=== PATIENT | male | born 1950 | race Caucasian/White ===

== ENCOUNTER 2020-12-26 02:24 | Emergency (ER) | payer MEDICARE, MEDICAID ==
[~2020-12-26] VITALS: Ht 182.9 cm; Wt 50.2 kg
[2020-12-26] MEDS ORDERED: QUET100T PO (03:06)
[2020-12-26] MEDS ORDERED: CLOP75TA60 PO (03:06)
[2020-12-26] MEDS ORDERED: ATOR40TA28 PO (03:06)
[2020-12-26] MEDS ORDERED: MIRT-89 PO (03:06)
[2020-12-26] MEDS ORDERED: DIVA125T32 PO (03:06)
[2020-12-26] MEDS ORDERED: ACET-2247 PO (03:06)
[2020-12-26] MEDS ORDERED: GLYC1TAB27 PO (03:06)
[2020-12-26] MEDS ORDERED: TAMS-13 PO (03:06)
[2020-12-26] MEDS: ZIPRASIDONE MESYLATE 20 MG/VIAL IM ONE (04:09)
[2020-12-26 04:12] LABS: APPEARANCE,URINE CLEAR (CLEAR); BILIRUBIN,URINE NEGATIVE (NEGATIVE); GLUCOSE, URINE (UA) NEGATIVE (NEGATIVE); KETONES,URINE NEGATIVE (NEGATIVE); LEUKOCYTE ESTERASE ,URINE NEGATIVE (NEGATIVE); NITRATE,URINE NEGATIVE (NEGATIVE); OCCULT BLOOD,URINE NEGATIVE (NEGATIVE); PROTEIN,URINE NEGATIVE (NEGATIVE); UROBILINOGEN,URINE 0.2 mg/dL (<=1.0)
[2020-12-26 04:20] LABS: ANION GAP 4 mmol/L (8-16); CARBON DIOXIDE 29 mmol/L (22-29); CHLORIDE 104 mmol/L (98-107); CREATININE 0.62 mg/dL (0.60-1.30); GLOMERULAR FILTR. RATE CALC > 60 mL/min (>60); GLUCOSE,RANDOM 88 mg/dL (70-110); POTASSIUM 3.7 mmol/L (3.5-5.1); SODIUM SERUM 137 mmol/L (136-145); UREA NITROGEN, BLOOD 16 mg/dL (7-18)
[2020-12-26 04:30] LABS: B-TYPE NATRIURETIC PEPTIDE 16 pg/mL (0-100)
[2020-12-26 04:33] LABS: BASOPHILS % (AUTO) 0.3 % (0.0-2.0); EOSINOPHILS % (AUTO) 0.8 % (1.0-6.0); HEMATOCRIT 37.6 % (41-53); HEMOGLOBIN 12.7 g/dL (13.5-17.5); LYMPHOCYTES # (AUTO) 0.9 K/uL (1.0-4.8); LYMPHOCYTES % (AUTO) 11.9 % (22.0-44.0); MEAN CORPUSCULAR HEMOGLOBIN 31.1 pg (26.0-34.0); MEAN CORPUSCULAR HGB CONC 33.7 G/dL (31.0-37.0); MEAN CORPUSCULAR VOLUME 92 fL (80-100); MONOCYTES # (AUTO) 0.7 K/uL (0.1-1.0); MONOCYTES % (AUTO) 9.4 % (2.0-9.0); NEUTROPHILS # (AUTO) 5.9 K/uL (1.8-7.7); NEUTROPHILS % (AUTO) 77.6 % (40.0-70.0); PLATELET COUNT (AUTO) 392 K/uL (150-450); RED BLOOD CELL COUNT(AUTO) 4.08 MIL/uL (4.50-5.90); RED CELL DISTRIBUTION WIDTH 15.3 % (11.5-14.5)
[2020-12-26 04:36] LABS: ALANINE AMINOTRANSFERASE 25 U/L (12-78); ALBUMIN 3.5 g/dL (3.4-5.0); ALKALINE PHOSPHATASE 109 U/L (46-116); ASPARTATE AMINOTRANSFERASE 25 U/L (15-37); BILIRUBIN,TOTAL 0.4 mg/dL (0.1-1.0); CALCIUM, TOTAL 9.2 mg/dL (8.8-10.5); CREATINE KINASE, TOTAL ONLY 171 U/L (39-308)
[2020-12-26 05:03] LABS: VALPROIC ACID 22 mcg/mL (50-100)
[2020-12-26] MEDS: HALOPERIDOL LACTATE 5 MG/ML VIAL IM ONE (05:04)
[2020-12-26] MEDS: DiphenhydrAMINE HCL 50 MG/ML VIAL IM ONE (05:08)
[2020-12-26 06:00] VITALS: BP 143/90
== END 2020-12-26 10:43 | disposition home or self-care (01) ==
LOC: EMS 02:27
DX: S51.812A Laceration without foreign body of left forearm, initial encounter (principal); F03.90 Unspecified dementia, unspecified severity, without behavioral disturbance, psychotic disturbance, mood disturbance, and anxiety; F41.9 Anxiety disorder, unspecified; I11.9 Hypertensive heart disease without heart failure; G43.909 Migraine, unspecified, not intractable, without status migrainosus; F20.9 Schizophrenia, unspecified; X58.XXXA Exposure to other specified factors, initial encounter; Y93.89 Activity, other specified; Y92.89 Other specified places as the place of occurrence of the external cause; Y99.8 Other external cause status
CPT/HCPCS: 36415; 70450; 71045; 80053; 80164; 81003; 82550; 83880; 84484; 85025; 85610; 85730; 93005; 96372; 99285; J1200; J1630; J3486